=== PATIENT | male | born 1990 | race African-American/Black ===

== ENCOUNTER 2017-06-19 09:50 | Outpatient (CLI) ==
--- NOTE | 2017-06-19 10:36 | CT ---
Exam: CT of the pelvis without intravenous contrast. Comparison: CT abdomen pelvis performed 10/28/2016. Reason for exam: Inguinal perineal pain. FINDINGS: Image interpretation is limited by the lack of intravenous contrast administration. No acute fracture or malalignment. The pelvic ring is intact. The femoral heads articulate with the acetabula bilaterally. There is no significant degenerative disease. The partially imaged pelvic soft tissues appear grossly unremarkable within limitations of a noncontr asted study. The bladder appears unremarkable. No intra-abdominal free air or pelvic free fluid. Impression: Unremarkable noncontrast CT examination of the pelvis.
== END 2017-06-19 09:51 | disposition home or self-care (01) ==
LOC: RAD 09:50
PROVIDERS: ATTEND Physician Assistant
DX: R10.2 Pelvic and perineal pain (principal)

== ENCOUNTER 2017-06-21 13:39 | Emergency (ER) ==
[2017-06-21 13:51] VITALS: BP 124/77; TEMP 97.7; BMI 20.7
--- NOTE | 2017-06-21 15:39 | US ---
EXAM: Ultrasound extremity limited HISTORY: Palpable knot with pain left groin/upper thigh. FINDINGS: Henriquez-scale ultrasound and color Doppler imaging was performed in the region of interest de scribed as the left groin palpable area. In this region, there were at least two prominent hypoechoic solid masses consistent with lymph nodes having benign appearing fatty ingrid. These are prominent in size measuring up to 1.5 cm short axis a nd are slightly hyperemic. IMPRESSION: Probable inguinal lymphadenitis. Continue clinical correlation is recommended. Follow-u p ultrasound can be considered if indicated.
--- NOTE | 2017-06-21 15:57 | ED.PDOC ---
General ED Provider: Dr. TANGELA MTZ Chief Complaint: Abdominal Pain Stated Complaint: right groin pain Time Seen by Physician: 13:49 Mode of Arrival: Walk-In Information Source: Patient Exam Limitations: No limitations Primary Care Provider: NORMA INGRAM Nursing and Triage Documentation Reviewed and Agree: Yes Reviewed sepsis parameters & appropriate labs ordered?: Yes System Inflammatory Response Syndrome: Not Applicable Sepsis Protocol: For patient's 13 years and over: Temp is 96.8 and below OR 101 and greater Pulse >90 BPM Resp >20/minute Acutely Altered Mental Status Are patient's symptoms suggestive of a new infection, such as: -Pneumonia -Skin, Soft Tissue -Endocarditis -UTI -Bone, Joint Infection -Implantable Device -Acute Abdominal Infection -Wound Infection -Meningitis -Blood Stream Catheter Infection -Unknown System Inflammatory Response Syndrome: Not Applicable Musculoskeletal Complaint Exam - Lower Extremity Complaint/Exam Location of Pain: Reports: Leg (left ) Mechanism of Injury: Reports: No known trauma Onset/Duration: 1 week Symptoms Are: Still present Onset of Pain: Reports: Days Initial Severity: Moderate Current Severity: Moderate Location: Reports: Discrete Character: Reports: Aching Alleviating: Reports: Position Aggravating: Reports: Movement Able to Bear Weight: Yes Associated Signs and Symptoms: Denies: Swelling, Redness, Bruising, Fever, Weakness, Numbness, Tingling DVT Risk Factors: Reports: None Septic Arthritis Risk Factors: Reports: None Related Surgical History: Reports: None Lower Extremity Findings: Present: Swelling (left groin) NV Bundle Intact Distal to Injury: No Differential Diagnoses: Contusion Review of Systems - Review Of Systems Constitutional: Reports: No symptoms Eyes: Reports: No symptoms Ears, Nose, Mouth, Throat: Reports: No symptoms Respiratory: Reports: No symptoms Cardiac: Reports: No symptoms GI: Reports: No symptoms : Reports: No symptoms Musculoskeletal: Reports: Other (left groin pain) Skin: Reports: No symptoms Neurological: Reports: No symptoms Endocrine: Reports: No symptoms Hematologic/Lymphatic: Reports: No symptoms All Other Systems: Reviewed and Negative Past Medical History - Past Medical History Previously Healthy: Yes Endocrine: Reports: None Cardiovascular: Reports: None Respiratory: Reports: None Hematological: Reports: None Gastrointestinal: Reports: None Genitourinary: Reports: None Neuro/Psych: Reports: None Musculoskeletal: Reports: None Cancer: Reports: None - Surgical History General Surgical History: Reports: None - Family History Family History: Reports: None - Social History Smoking Status: Current every day smoker, Light tobacco smoker Hx Substance Use: No Alcohol Screening: Occasionally Physical Exam - Physical Exam Appearance: Well-appearing (noted over femoral triangle) Eyes: JAZMIN, EOMI, Conjunctiva clear ENT: Ears normal, Nose normal, Oropharynx normal Respiratory: Airway patent, Breath sounds clear, Breath sounds equal, Respirations nonlabored Cardiovascular: RRR, Pulses normal, No rub, No murmur GI/: Soft, Nontender, No masses, Bowel sounds normal, No Organomegaly Musculoskeletal: Normal strength, ROM intact, No edema, No calf tenderness Skin: Warm, Dry, Normal color Neurological: Sensation intact, Motor intact, Reflexes intact, Cranial nerves intact, Alert, Oriented Psychiatric: Affect appropriate, Mood appropriate Interpretation - Radiology Interpretation Radiology Interpretation By: Radiologist Radiology Results: Positive (lymphadenitis) Critical Care Note - Critical Care Note Total Time (mins): 0 Course - Course Orders, Labs, Meds: Orders Category Date Time Status ULTRASOUND EXTREMITY LIMITED [U/S EXTREMITY LIMITED] RADS 06/21/17 15:03 Completed Stat Vital Signs: Temp Pulse Resp BP Pulse Ox 06/21/17 13:40 97.7 F 87 20 124/77 98 Departure - Departure Time of Disposition: 15:56 Disposition: HOME SELF-CARE Discharge Problem: Lymphadenitis, acute Instructions: Adenitis (ED) Condition: Good Pt referred to PMD for follow-up: Yes IPMP verified?: Yes Additional Instructions: Please call your Family Physician as soon as possible to schedule a follow-up appointment. Allergies/Adverse Reactions: Allergies No Known Allergies Allergy (Unverified 06/21/17 15:44) Home Medications: Ambulatory Orders 1 [No Reported Medications] 06/21/17 Disposition Discussed With: Patient
--- NOTE | 2017-06-21 17:41 | US ---
EXAM: Venous Doppler ultrasound examination of the left lower extremity veins HISTORY: Possible note,pain TECHNIQUE: Henriquez scale and color Doppler imaging of the left lower extremity veins was performed. FINDINGS: There is normal response to compression and normal blood flow identified within the left c ommon femoral, left femoral, left deep femoral, left popliteal veins and within the veins of the calf . No abnormal filling defects are identified within the lumen of the veins. There was normal respon se to augmentation. IMPRESSION: No evidence of deep venous thrombus identified within the left lower extremity veins.
== END 2017-06-21 17:50 | disposition home or self-care (01) ==
LOC: ED 13:39
DX: L04.1 Acute lymphadenitis of trunk (principal); M79.605 Pain in left leg; F17.210 Nicotine dependence, cigarettes, uncomplicated
CPT/HCPCS: 99282

== ENCOUNTER 2017-07-08 17:52 | Emergency (ER) ==
[2017-07-08 17:58] VITALS: BP 115/71; TEMP 100
== END 2017-07-08 17:55 | disposition left against medical advice (07) ==
LOC: ED 17:52
DX: R50.9 Fever, unspecified (principal); R52 Pain, unspecified; R05 Cough

== ENCOUNTER 2017-12-20 11:32 | Emergency (ER) ==
[2017-12-20 11:37] VITALS: BP 110/75; TEMP 96; BMI 20.7
[2017-12-20] MEDS ORDERED: ROCEPHIN IM STA (11:39)
[2017-12-20] MEDS ORDERED: LIDOCAINE HCL 1% SDV IM STA (11:39)
[2017-12-20] MEDS ORDERED: ZITHROMAX PO STA (11:40)
--- NOTE | 2017-12-20 11:41 | ED.PDOC ---
General ED Provider: Dr. TANGELA MTZ Chief Complaint: Penile Problem Stated Complaint: penile discharge Time Seen by Physician: 11:38 Mode of Arrival: Walk-In Information Source: Patient Exam Limitations: No limitations Primary Care Provider: NORMA INGRAM Nursing and Triage Documentation Reviewed and Agree: Yes Does patient meet sepsis criteria?: No System Inflammatory Response Syndrome: Not Applicable Sepsis Protocol: For patient's 13 years and over: Temp is 96.8 and below OR 101 and greater Pulse >90 BPM Resp >20/minute Acutely Altered Mental Status Are patient's symptoms suggestive of a new infection, such as: -Pneumonia -Skin, Soft Tissue -Endocarditis -UTI -Bone, Joint Infection -Implantable Device -Acute Abdominal Infection -Wound Infection -Meningitis -Blood Stream Catheter Infection -Unknown Complaint Exam - Complaint/Exam Patient Complains of: Reports: Dysuria Onset/Duration: 2 days Timing: Intermittent Episodes of Voiding Over Last 12 Hours: 4 Initial Severity: Mild Current Severity: Mild Location of Pain: Reports: Penis Character: Reports: Burning Aggravating: Reports: Voiding Alleviating: Reports: None Associated Signs and Symptoms: Denies: Diaphoresis, Back pain, Fever, Hematuria , Dysuria, Constipation, Blood in stool, Rectal pain, Appetite change, Nausea, Vomiting, Penile swelling, Penile discharge, Decreased urine output, Increased urine frequency, Increased thirst, Decreased activity, Lethargy, Scrotal pain, Scrotal swelling, Abdominal Pain Testicular Torsion Risk Factors: Reports: None Surgical Obstruction Risk Factors: Reports: None Related Surgical History: Reports: None Abdominal Findings: Present: None Genitalia Exam: Present: Normal findings Differential Diagnoses: Other (STD) Review of Systems - Review Of Systems Constitutional: Reports: No symptoms Eyes: Reports: No symptoms Ears, Nose, Mouth, Throat: Reports: No symptoms Respiratory: Reports: No symptoms Cardiac: Reports: No symptoms GI: Reports: No symptoms : Reports: Dysuria Musculoskeletal: Reports: No symptoms Skin: Reports: No symptoms Neurological: Reports: No symptoms Endocrine: Reports: No symptoms Hematologic/Lymphatic: Reports: No symptoms All Other Systems: Reviewed and Negative Past Medical History - Past Medical History Previously Healthy: Yes Endocrine: Reports: None Cardiovascular: Reports: None Respiratory: Reports: None Hematological: Reports: None Gastrointestinal: Reports: None Genitourinary: Reports: None Neuro/Psych: Reports: None Musculoskeletal: Reports: None Cancer: Reports: None - Surgical History General Surgical History: Reports: None - Family History Family History: Reports: None - Social History Smoking Status: Current every day smoker, Light tobacco smoker Hx Substance Use: No Alcohol Screening: Occasionally Physical Exam - Physical Exam Appearance: Well-appearing, No pain distress, Well-nourished Eyes: JAZMIN, EOMI, Conjunctiva clear ENT: Ears normal, Nose normal, Oropharynx normal Respiratory: Airway patent, Breath sounds clear, Breath sounds equal, Respirations nonlabored Cardiovascular: RRR, Pulses normal, No rub, No murmur GI/: Soft, Nontender, No masses, Bowel sounds normal, No Organomegaly Musculoskeletal: Normal strength, ROM intact, No edema, No calf tenderness Skin: Warm, Dry, Normal color Neurological: Sensation intact, Motor intact, Reflexes intact, Cranial nerves intact, Alert, Oriented Psychiatric: Affect appropriate, Mood appropriate Critical Care Note - Critical Care Note Total Time (mins): 0 Course - Course Orders, Labs, Meds: Orders Category Date Time Status Azithromycin [Zithromax] MEDS 12/20/17 11:40 Discontinued 1,000 mg PO ONCE STA Ceftriaxone Sodium [Rocephin] MEDS 12/20/17 11:39 Discontinued 1 gm IM ONCE STA Lidocaine HCl/Pf [Lidocaine HCl 1% Sdv] MEDS 12/20/17 11:39 Discontinued 2.1 ml IM ONCE STA Medications Discontinued Medications Generic Name Dose Route Start Last Admin Trade Name Freq PRN Reason Stop Dose Admin Azithromycin 1,000 mg 12/20/17 11:40 Zithromax PO 12/20/17 11:41 ONCE STA Ceftriaxone Sodium 1 gm 12/20/17 11:39 Rocephin IM 12/20/17 11:40 ONCE STA Lidocaine HCl 2.1 ml 12/20/17 11:39 Lidocaine Hcl 1% Sdv IM 12/20/17 11:40 ONCE STA Vital Signs: Temp Pulse Resp BP Pulse Ox 12/20/17 11:34 96.0 F L 88 18 110/75 98 Departure - Departure Time of Disposition: 12:20 Disposition: HOME SELF-CARE Discharge Problem: STD exposure Instructions: Safe Sex (ED), Condom Use (ED), Sexually Transmitted Diseases (ED ), Chlamydia (ED), Trichomoniasis (ED) Condition: Good Pt referred to PMD for follow-up: Yes IPMP verified?: No Additional Instructions: Please call your Family Physician as soon as possible to schedule a follow-up appointment. Allergies/Adverse Reactions: Allergies Bleach (Sodium Hypochlorite) Adverse Reaction (Verified 12/20/17 11:37) Latex, Natural Rubber Adverse Reaction (Verified 12/20/17 11:37) Home Medications: Ambulatory Orders 1 [No Reported Medications] 07/08/17 Disposition Discussed With: Patient
== END 2017-12-20 12:22 | disposition home or self-care (01) ==
LOC: ED 11:32
DX: R36.9 Urethral discharge, unspecified (principal); Z20.2 Contact with and (suspected) exposure to infections with a predominantly sexual mode of transmission; F17.210 Nicotine dependence, cigarettes, uncomplicated
CPT/HCPCS: 36415; 87389; 99282